=== PATIENT | female | born 1965 | race Two or more races ===

== ENCOUNTER 2017-01-07 20:42 | Emergency (ER) | payer SELFPAY ==
[~2017-01-07] VITALS: Ht 162.6 cm; Wt 68.0 kg
--- NOTE | 2017-01-07 20:42 | NUR ---
pt to er bb ra from street for etoh and headache. pt sts history of migraine headaches. pt vital signs stable. pt ambulatory with steady gait. pt a/ox3 however does appear intoxicated. pt admits to drinking alcohol. pt to er bed
--- NOTE | 2017-01-07 21:29 | NUR ---
pt sleeping in gurney. no signs of distress noted. pt easily arousable. will cont to monitor pt.
[2017-01-07] MEDS ORDERED: IBUPROFEN 600 MG TABLET PO ONE ×2 (22:00→23:03)
[2017-01-07] MEDS ORDERED: ONDANSETRON 4 MG TAB.RAPDIS SL ONE (22:00)
[2017-01-07] MEDS ORDERED: ONDANSETRON 4 MG TAB.RAPDIS ONE (23:03)
--- NOTE | 2017-01-07 23:45 | NUR ---
PT REQUESTING TO BE DISCHARGED HOME. Patient discharged to home in stable condition. Written and verbal after care instructions given. Patient verbalizes understanding of instruction.Patient is awake and alert to self, day, and place. PT ambulatory with a steady gait
[2017-01-07 23:57] VITALS: BP 125/82
== END 2017-01-07 23:57 | disposition home or self-care (01) ==
LOC: ER 20:44 → EDBD 20:44 → ER 23:57
DX: F10.129 Alcohol abuse with intoxication, unspecified (principal); F17.210 Nicotine dependence, cigarettes, uncomplicated; R51 Headache; G43.909 Migraine, unspecified, not intractable, without status migrainosus; Z88.0 Allergy status to penicillin
CPT/HCPCS: 70450; 99284; A4606; Q0162; Z7610

== ENCOUNTER 2017-01-08 01:09 | Emergency (ER) | payer SELFPAY ==
[~2017-01-08] VITALS: Ht 167.6 cm; Wt 59.0 kg
--- NOTE | 2017-01-08 01:09 | NUR ---
PT TO ER C/O SUICIDAL IDEATION. PT DENIES PLAN. PT ADMITS TO DRINKING ALCOHOL EARLIER TODAY. NO IMMEDIATE SIGNS OF DISTRESS NOTED. PT VITAL SIGNS STABLE. PT TO ER BED. SUICIDE PRECAUTIONS IMPLEMENTED.
[2017-01-08 02:05] LABS: BASOPHILS % (AUTO) 0.4 % (0.0-2.0); EOSINOPHILS # (AUTO) 0.1 /CMM (0.0-0.7); EOSINOPHILS % (AUTO) 0.6 % (0.0-6.0); HEMATOCRIT 39 % (33-45); LYMPHOCYTES # (AUTO) 0.9 /CMM (0.8-4.8); LYMPHOCYTES % (AUTO) 11.2 % (20.0-44.0); MEAN CORPUSCULAR HEMOGLOBIN 32 PG (26.0-33.0); MEAN CORPUSCULAR HGB CONC 33 g/dl (31.0-36.0); MEAN CORPUSCULAR VOLUME 96 fL (82-100); MONOCYTES # (AUTO) 0.9 /CMM (0.1-1.30); MONOCYTES % (AUTO) 10.6 % (2.0-12.0); NEUTROPHILS # (AUTO) 6.5 /CMM (1.8-8.9); NEUTROPHILS % (AUTO) 77.2 % (43.0-81.0); PLATELET COUNT (AUTO) 307 /CMM (150-450); RDW COEFFICIENT OF VARIATION 13.5 (11.5-15.0); RED BLOOD CELL COUNT(AUTO) 4.06 MIL/uL (4.0-5.2); WHITE BLOOD COUNT (AUTO) 8.4 K/uL (4.3-11.0)
[2017-01-08 02:21] LABS: CALCIUM, SERUM 7.7 mg/dL (8.5-10.1); CREATININE 0.7 mg/dL (0.6-1.3); POTASSIUM 4.1 mmol/L (3.5-5.1)
[2017-01-08 02:23] LABS: CANNABINOID, URINE NEGATIVE (NEGATIVE); PHENCYCLIDINE SCREEN,URINE NEGATIVE (NEGATIVE)
[2017-01-08 02:30] LABS: ALBUMIN 3.4 g/dL (3.4-5.0); BILIRUBIN,DIRECT 0.2 mg/dL (0.0-0.2); BILIRUBIN,TOTAL 1.2 mg/dL (0.2-1.0); TOTAL PROTEIN, SERUM 6.7 g/dL (6.4-8.2)
[2017-01-08 02:35] LABS: SALICYLATE 1.7 mg/dL (2.8-20.0)
--- NOTE | 2017-01-08 04:23 | NUR ---
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
--- NOTE | 2017-01-08 05:40 | NUR ---
PT OK TO DISCHARGE HOME PER DR RODRIGUEZ. Patient discharged to home in stable condition. Written and verbal after care instructions given. Patient verbalizes understanding of instruction.Patient is awake and alert to self, day, and place. PT ambulatory with a steady gait
[2017-01-08 06:40] VITALS: BP 121/70
== END 2017-01-08 06:40 | disposition home or self-care (01) ==
LOC: ER 01:09
DX: F10.129 Alcohol abuse with intoxication, unspecified (principal); Z76.5 Malingerer [conscious simulation]; G40.909 Epilepsy, unspecified, not intractable, without status epilepticus; G43.909 Migraine, unspecified, not intractable, without status migrainosus; Z88.1 Allergy status to other antibiotic agents; F17.200 Nicotine dependence, unspecified, uncomplicated; Z98.890 Other specified postprocedural states
CPT/HCPCS: 36415; 80048-TC; 80076-TC; 80305; 84703-TC; 85025-TC; A4606; G0480; G6039-TC; Z7610